=== PATIENT | female | born 1970 | race Caucasian/White ===

== ENCOUNTER 2019-01-21 16:04 | Emergency (ER) | payer OTHER ==
[~2019-01-21] VITALS: Ht 170.2 cm; Wt 129.3 kg
[2019-01-21] MEDS ORDERED: Vistaril50 MG PO (17:16)
== END 2019-01-21 17:29 | disposition home or self-care (01) ==
LOC: ER 16:04
DX: M25.531 Pain in right wrist (principal); M79.631 Pain in right forearm; F41.1 Generalized anxiety disorder; Z88.1 Allergy status to other antibiotic agents; Y04.2XXA Assault by strike against or bumped into by another person, initial encounter
CPT/HCPCS: 73090; 99283-25; Q0177

== ENCOUNTER → 2019-12-24 | Outpatient (CLI) | payer OTHER ==
[~2019-12-24] MED LIST: Vistaril50 MG PO
[2019-12-25 14:08] LABS: HPV 16 Negative (Negative); HPV 18 Negative (Negative); HPV OTHER HR TYPES Negative (Negative)
== END | disposition home or self-care (01) ==
LOC: LAB SHORT 14:21 → LAB 14:21
PROVIDERS: Family Medicine
DX: Z00.00 Encounter for general adult medical examination without abnormal findings (principal)
CPT/HCPCS: 87624; G0123